=== PATIENT | female | born 1970 | race Caucasian/White ===

== ENCOUNTER 2018-04-20 11:41 | Emergency (ER) | payer OTHER ==
--- NOTE | 2018-04-20 12:09 | ERPHSYRPT ---
- History of Present Illness Time Seen by Provider: 04/20/18 12:06 Source: patient, family Exam Limitations: no limitations Patient Subjective Stated Complaint: pt co headache this morning. pt states this is her normal migraine, Triage Nursing Assessment: pt walked in, resp easy, skin w/d/p. alert and oriented, Physician History: The patient is a 48-year-old female with her daughter complaining that she woke up with a typical migraine headache. She has pain in both temples and is nauseated. She is sensitive to light. Imitrex will usually abort the headache. However, Imitrex was not effective this morning. The patient has a history of a brain aneurysm that was discovered 22 years ago. She denies numbness or tingling anywhere. Her past medical history is significant for brain aneurysm, CAD, NV, cardiac pacer/defibrillator, HTN, and high cholesterol. Timing/Duration: today Quality: aching Head Pain Location: temporal Severity of Pain-Max: moderate Severity of Pain-Current: moderate Recent Head Trauma: chronic headaches Modifying Factors: Improves With: exposure to light Associated Symptoms: nausea/vomiting, sensitive to light, No loss of consciousness, No numbness in legs/feet, No scotoma, No stiff neck, No trouble walking, No vision changes, No visual disturbance Previous symptoms: same symptoms as today Allergies/Adverse Reactions: tramadol Allergy (Verified 04/20/18 11:53) Home Medications: Aspirin [Aspirin EC] 81 mg PO DAILY 07/23/15 [History] Carvedilol 12.5 mg [Coreg 12.5 mg] 12.5 mg PO BID 07/23/15 [History] Clopidogrel Bisulfate [Plavix] 75 mg PO DAILY 07/23/15 [History] Esomeprazole Magnesium [Nexium] 40 mg PO DAILY 07/23/15 [History] Lisinopril 10 mg [Zestril 10 MG] 20 mg PO DAILY 07/23/15 [History] Nitroglycerin 0.4 mg Tablet [Nitrostat 0.4 MG Tablet] 0.4 mg SL UD [History] Sertraline HCl 100 mg [Zoloft 100 MG] 100 mg PO HS 07/23/15 [History] Atorvastatin Calcium [Lipitor 40Mg] 40 mg PO HS 01/11/16 [History] Lansoprazole 15 mg DAILY 04/20/18 [History] Spironolactone 25 mg DAILY 04/20/18 [History] Hx Tetanus, Diphtheria Vaccination/Date Given: Yes (unknown) Hx Influenza Vaccination/Date Given: No Hx Pneumococcal Vaccination/Date Given: No - Review of Systems Constitutional: No Fever, No Chills Eyes: No Symptoms Ears, Nose, & Throat: No Symptoms Respiratory: No Cough, No Dyspnea Cardiac: No Chest Pain, No Edema, No Syncope Abdominal/Gastrointestinal: Nausea Genitourinary Symptoms: No Dysuria Musculoskeletal: No Back Pain, No Neck Pain Skin: No Rash Neurological: Headache Psychological: No Symptoms Endocrine: No Symptoms Hematologic/Lymphatic: No Symptoms Immunological/Allergic: No Symptoms All Other Systems: Reviewed and Negative - Past Medical History Pertinent Past Medical History: Yes Neurological History: Other Cardiac History: Congestive Heart Failure, Coronary Artery Disease, High Cholesterol, Hypertension, Myocardial Infarction (NV) Respiratory History: CHF, COPD, Other Other Medical History: head bleed a week after delivery - Past Surgical History Past Surgical History: Yes Cardiac: Cardiac Catheterization, Cardiac Stent, Internal Defibrillator, Pacemaker Female Surgical History: Hysterectomy - Social History Smoking Status: Current every day smoker How long have you smoked: 20 Exposure to second hand smoke: Yes Drug Use: none Patient Lives Alone: No - Female History Hx Last Menstrual Period: hyster Hx Now: No - Nursing Vital Signs Nursing Vital Signs: Initial Vital Signs Temperature 98.0 F 04/20/18 11:45 Pulse Rate 87 04/20/18 11:45 Respiratory Rate 18 04/20/18 11:45 Blood Pressure 145/101 04/20/18 11:45 O2 Sat by Pulse Oximetry 98 04/20/18 11:45 Pain Scale Pain Intensity 10 - Physical Exam General Appearance: mild distress Eye Exam: PERRL/EOMI Ears, Nose, Throat Exam: normal ENT inspection, moist mucous membranes Neck Exam: normal inspection, supple, full range of motion, No meningismus Respiratory Exam: normal breath sounds, lungs clear Cardiovascular Exam: regular rate/rhythm, normal heart sounds Gastrointestinal/Abdominal Exam: soft, No tenderness, No distention Back Exam: normal inspection, normal range of motion Extremity Exam: normal inspection Mental Status Exam: alert, oriented x 3, 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 Exam: normal hearing, normal speech, PERRL, tongue midline, No abnormal speech, No facial asymmetry, No facial droop, No facial paresthesias, No facial weakness Coordination/Gait Exam: normal cerebellar function Motor/Sensory Exam: no motor deficit, no sensory deficit Skin Exam: normal color, warm, dry, No rash SpO2 Interpretation: normal SpO2: 98 Oxygen Delivery: Room Air - CT Exams Head CT Interpretation: Tele-radiologist Report (per Dr Prieto), No/Intracranial Hemorrhag Ordered Tests: Active Orders 24 hr Category Date Time Status IV Insertion STAT Care 04/20/18 12:10 Active HEAD WITHOUT CONTRAST [CT] Stat Exams 04/20/18 12:09 Taken Medication Summary Discontinued Medications Generic Name Dose Route Start Last Admin Trade Name Freq PRN Reason Stop Dose Admin Diphenhydramine HCl 25 mg 04/20/18 13:28 04/20/18 13:37 Benadryl 50 Mg/Ml IV 04/20/18 13:29 50 mg STAT ONE Administration Diphenhydramine HCl Confirm 04/20/18 13:32 Benadryl 50 Mg/Ml Administered 04/20/18 13:33 Dose 50 mg .ROUTE .STK-MED ONE Sodium Chloride 1,000 mls @ 999 mls/hr 04/20/18 12:10 04/20/18 12:47 Sodium Chloride 0.9% 1000 Ml IV 04/20/18 13:10 999 mls/hr .Q1H1M STA Administration Sodium Chloride Confirm 04/20/18 12:17 Sodium Chloride 0.9% 1000 Ml Administered 04/20/18 12:18 Dose 1,000 mls @ ud .ROUTE .STK-MED ONE Metoclopramide HCl 10 mg 04/20/18 13:28 04/20/18 13:38 Reglan 10 Mg/2 Ml IV 04/20/18 13:29 10 mg STAT ONE Administration Metoclopramide HCl Confirm 04/20/18 13:32 Reglan 10 Mg/2 Ml Administered 04/20/18 13:33 Dose 10 mg .ROUTE .STK-MED ONE Sumatriptan Succinate 6 mg 04/20/18 13:29 04/20/18 13:38 Imitrex 6 Mg/0.5 Ml SQ 04/20/18 13:30 6 mg STAT STA Administration Sumatriptan Succinate Confirm 04/20/18 13:32 Imitrex 6 Mg/0.5 Ml Administered 04/20/18 13:33 Dose 6 mg SQ .STK-MED ONE - Progress Progress: improved Progress Note: 04/20/18 14:01 The patient was given Benadryl 25 mg, Reglan 10 mg, and fluids by IV. The patient was also given Imitrex 6 mg subcutaneous. The patient is feeling better and wishes to go home. Blood Culture(s) Obtained: No Antibiotics given: No Counseled pt/family regarding: lab results, diagnosis, rad results - Departure Time of Disposition: 14:01 Departure Disposition: Home Clinical Impression: Migraine headache Condition: Stable Critical Care Time: No Referrals: NARESH POLLARD PA [Primary Care Provider] - Additional Instructions: You had a migraine headache this morning. You were given Reglan 10 mg, Benadryl 25 mg, and fluids by IV area you were also given Imitrex 6 mg subcutaneous. The head CT was negative. Follow-up with your primary medical doctor as needed.
[2018-04-20] MEDS ORDERED: Sodium Chloride 0.9% 1000 ML 1,000 ML ONE (12:17)
[2018-04-20] MEDS: Sodium Chloride 0.9% 1000 ML 1,000 ML IV STA (12:47)
[2018-04-20] MEDS ORDERED: Reglan 10 MG/2 ML ONE (13:32)
[2018-04-20] MEDS ORDERED: BENADRYL 50 MG/ML ONE (13:32)
[2018-04-20] MEDS ORDERED: Imitrex 6 MG/0.5 ML SQ ONE (13:32)
[2018-04-20] MEDS: BENADRYL 50 MG/ML IV ONE (13:37)
[2018-04-20] MEDS: Imitrex 6 MG/0.5 ML SQ STA (13:38)
[2018-04-20] MEDS: Reglan 10 MG/2 ML IV ONE (13:38)
[2018-04-20 14:10] VITALS: BP 108/92; PULSE 64; O2SAT 97
--- NOTE | 2018-04-20 19:40 | XRAY ---
Indication: Migraine headaches. Multiple contiguous axial images obtained through the head without contrast. Comparison: None Normal appearing brain parenchyma, ventricles, and bony calvarium. Visualized paranasal sinuses and mastoid air cells are clear. Impression: Normal CT head without contrast exam. Comment: Preliminary interpretation was made by [facility]. No discrepancy. CTDI 67.00
== END 2018-04-20 14:10 | disposition home or self-care (01) ==
LOC: ED 11:41
DX: G43.909 Migraine, unspecified, not intractable, without status migrainosus (principal); Z79.01 Long term (current) use of anticoagulants; Z79.899 Other long term (current) drug therapy
CPT/HCPCS: 70450; 96360; 96372; 96374; 96375; 99284; J1200; J3030